=== PATIENT | male | born 1950 | race Caucasian/White ===

== ENCOUNTER 2020-05-29 07:56 | Emergency (ER) | payer OTHER ==
[~2020-05-29] VITALS: Ht 177.8 cm; Wt 96.2 kg
[~2020-05-29 07:56] MED LIST: ATORVASTATIN CA40 MG PO; CO Q-10200 MG PO; FLUOXETINE HCL20 MG PO; GABAPENTIN100 MG PO; GLUCOPHAGE500 MG PO; LOVASTATIN20 MG PO; MELOXICAM7.5 MG PO; NAPROXEN375 MG PO; NORCO 10-325 T1 EACH PO; OMEPRAZOLE20 MG PO; PERCOCET 5-3251 EACH PO; VITAMIN B-12100 MCG PO; VITAMIN D-32000 UNIT PO; ZOFRAN4 MG PO; ZYRTEC10 MG PO
[2020-05-29] MEDS ORDERED: PLAVIX75 MG PO (14:43)
--- NOTE | 2020-05-29 17:18 | EKG ---
[facility] [address] [facility] [place], [place] [address] Signed Normal sinus rhythm Normal ECG No previous ECGs available Confirmed by MILKA YOUNG MD ([id number]) on 05/29/2020 5:18:39 PM Electronically Signed By: MILKA YOUNG MD 05/29/20 1718 PATIENT NAME: DONNELL CHAUN Electrocardiogram DATE OF : 50 PHYSICIAN: MILKA YOUNG MD REPORT #: [id number] REPORT IS CONFIDENTIAL AND NOT TO BE RELEASED WITHOUT AUTHORIZATION
== END 2020-05-29 15:11 | disposition home or self-care (01) ==
LOC: ED 07:56
DX: I63.81 Other cerebral infarction due to occlusion or stenosis of small artery (principal); M54.12 Radiculopathy, cervical region; E11.9 Type 2 diabetes mellitus without complications; F17.200 Nicotine dependence, unspecified, uncomplicated; Z79.899 Other long term (current) drug therapy; Z79.84 Long term (current) use of oral hypoglycemic drugs
CPT/HCPCS: 70450; 70496; 70498; 70551; 71045; 80053; 84484; 85025; 85610; 85730; 93005; 93010; 99284-25; Q9967

== ENCOUNTER 2023-01-14 09:24 | Emergency (ER) | payer MEDICARE ==
[~2023-01-14] VITALS: Ht 177.8 cm; Wt 80.0 kg
[~2023-01-14 09:24] MED LIST changes: +AMLODIPINE BESYL5 MG PO; +CLOPIDOGREL75 MG PO; +GABAPENTIN300 MG PO; +LISINOPRIL5 MG PO; +LO-DOSE ASPIRIN81 M1 PO; +METFORMIN HCL500 MG PO; +NICOTINE LOZENGE4 MG BUCCAL; +OXYCODONE HCL5 MG PO; +PLAVIX75 MG PO
[2023-01-14] MEDS ORDERED: BENZONATATE100 MG PO (09:55)
[2023-01-14] MEDS ORDERED: AMOX TR-K CLV1 EAC1 PO (09:55)
[2023-01-14] MEDS ORDERED: LOSARTAN-HCTZ1 EAC1 PO (09:55)
[2023-01-14] MEDS ORDERED: GUAIFENESIN-CO473 ML PO (09:55)
[2023-01-14] MEDS ORDERED: VENTOLIN HFA18 GM INH ×2 (09:55→10:06)
[2023-01-14] MEDS ORDERED: SILDENAFIL CIT100 MG PO (09:55)
[2023-01-14] MEDS ORDERED: TAMSULOSIN HCL0.4 MG PO (09:55)
[2023-01-14] MEDS ORDERED: DEXAMETHASONE6 MG PO (10:06)
[2023-01-14 11:44] VITALS: BP 117/73
== END 2023-01-14 11:45 | disposition home or self-care (01) ==
LOC: ED 09:24
DX: U07.1 COVID-19 (principal); J45.909 Unspecified asthma, uncomplicated; I10 Essential (primary) hypertension; E11.9 Type 2 diabetes mellitus without complications; F17.200 Nicotine dependence, unspecified, uncomplicated; Z79.84 Long term (current) use of oral hypoglycemic drugs; Z79.899 Other long term (current) drug therapy; Z79.82 Long term (current) use of aspirin
CPT/HCPCS: 71046; 94640; 99285-25; J8540

== ENCOUNTER 2024-05-07 06:31 | Day surgery (SDC) | payer MEDICARE, OTHER ==
[~2024-05-07] VITALS: Ht 175.3 cm; Wt 84.4 kg
[~2024-05-07 06:31] MED LIST changes: +AMOX TR-K CLV1 EAC1 PO; +BENZONATATE100 MG PO; +CLOBETASOL 0.0560 GM TOP; +DEXAMETHASONE6 MG PO; +GUAIFENESIN-CO473 ML PO; +LOSARTAN-HCTZ1 EAC1 PO; +MIDAZOLAM HCL 5 MG/5 ML VIAL IV PRN; +NEURONTIN300 MG PO; +SILDENAFIL CIT100 MG PO; +TAMSULOSIN HCL0.4 MG PO; +VENTOLIN HFA18 GM INH; +fentaNYL citrate 100 MCG/2 ML VIAL IV PRN
[2024-05-07] MEDS ORDERED: MIDAZOLAM HCL 5 MG/5 ML VIAL ONE (06:40)
[2024-05-07] MEDS ORDERED: fentaNYL citrate 100 MCG/2 ML VIAL ONE (06:40)
[2024-05-07 06:50] VITALS: BP 133/62
[2024-05-07] MEDS ORDERED: LACTATED RINGER'S 1,000 ML IV SCH (07:00)
[2024-05-07] MEDS ORDERED: IBLOOD GLUCOSE TEST STRIP 1 EA TEST VI PRN (07:00)
[2024-05-07] MEDS ORDERED: LIDOCAINE HCL 1% 5 ML SDV INJ ONE (07:00)
--- NOTE | 2024-05-07 07:21 | NUR ---
PT NOT AVAILABLE FOR VISIT. PROVIDED PRAYER.
[2024-05-07 08:46] VITALS: BP 106/68
--- NOTE | 2024-05-07 08:59 | NUR ---
05/07/24 0859 Marcelina Landon 0812- PT ARRIVES TO THE PACU WITH A NATURAL AIRWAY ON 3L OF O2 VIA NC. PT IS MOVING HIS ARMS AND TALKING WITH RN. LR INFUSING IN HIS R AC. ALL MONITORS PUT IN PLACE. VSS. PT DENIES PAIN AND NAUSEA. PT ENCOURAGED TO PASS GAS. ABDOMEN SOFT AND NONDISTENDED. PT ORIENTED TO PACU. 0822- O2 TURNED OFF AND REMOVED. PT IS ABLE TO MAINTAIN O2 SATS ABOVE 95%. 0828- PT PASSING GAS OFF AND ON. PT DENIES PAIN AND NAUSEA AND TAKING TALKING WITH RN. 0842- PT HOB INCREASED AND PT TOLERATING WELL. PT DRINKING JUICE. DC INSTRUCTIONS GONE OVER. NO QUESTIONS OR CONCERNS. PT DENIES DIZZINESS WHEN SITTING UP. 0850- ALL MONITORS REMOVED. PT GETTING DRESSED INDEPENDENTLY WITH NO ISSUES.
--- NOTE | 2024-05-07 09:04 | OR ---
[facility] [address] [place], [place] [address] Signed DATE OF OPERATION: 05/07/2024 SURGEON: Jamia Mejía MD PREOPERATIVE DIAGNOSES: 1. Personal history of colonic polyps in 2019 at age 67. 2. Diverticulosis. 3. Internal hemorrhoids. POSTOPERATIVE DIAGNOSES: 1. 4 mm polyps x2 at 5 cm in rectum. 2. 5 mm polyp at distal right colon. 3. 5 mm polyps x2 at 20 cm in distal sigmoid colon/rectosigmoid junction. 4. Minimal left-sided diverticulosis. 5. Tortuous sigmoid colon. 6. Minimal internal hemorrhoids. PROCEDURE: Colonoscopy with hot biopsy. ESTIMATED BLOOD LOSS: None. INDICATIONS: Rachid is a 73-year-old gentleman, asked to see me for followup colonoscopy. He had a colonoscopy in his late 50s with Dr. Martin which was negative. I helped him again in 2019 at the age of 67. He had several small adenomatous polyps removed. They were all under 5 mm in diameter. He had little diverticulosis along with internal hemorrhoids. He had an upper endoscopy at that same time. We used a total of 10 mg of Versed and 175 mcg of fentanyl. He has no family history of colon cancer or polyps. He has no lower GI complaints. Despite his COPD and his mild stroke he continues to work. He said he is and the COVID pandemic really cut into his finances. In the office, I gave him our brochure on colonoscopy. We reviewed the nature of the test. There is risk including, but not limited to gas bloating, crampy abdominal pain, bleeding, perforation requiring surgery, and missed diagnosis. We also reviewed the written instructions for the bowel prep line by line. It is the same bowel prep he took before. He was supposed to hold the aspirin for three days, but he only held it for two. He did hold the metformin this morning. We also reviewed the need for IV conscious sedation. He felt like Versed and fentanyl would be sufficient as it was before. He had expressed understanding and wished to proceed. Electronically Signed By: JAMIA MEJÍA MD 05/07/24 0904 PATIENT NAME: RACHID CHAU OPERATIVE REPORT DATE OF : 50 REPORT #: [id number] PHYSICIAN: JAMIA MEJÍA MD PCP: RACHID HOUSTON MD REPORT IS CONFIDENTIAL AND NOT TO BE RELEASED WITHOUT AUTHORIZATION [facility] [address] [place], [place] [address] Signed DESCRIPTION OF PROCEDURE: Rachid was taken into our endoscopy suite and placed in the left lateral decubitus position. He was given a total of 8 mg of Versed and 150 mcg of fentanyl to cover the case. A digital rectal exam was performed. This was unremarkable. No external hemorrhoids. Good sphincter tone. No masses. The adult colonoscope was introduced and advanced under direct visualization of camera. He does have a tortuous sigmoid colon. It actually took us a while to get through that on this occasion. We had to give increasing doses of the Versed and fentanyl. We had to use some abdominal compression. The scope continued to drag in his tortuous sigmoid colon. We eventually made it over hepatic flexure. It took a while. We finally made it down into the cecum itself. He had just a little bit of bilious fluid in the cecum. We were able to irrigate and suction that out completely. The scope was then slowly withdrawn. The above-mentioned polyps were easily removed with the help of hot biopsy forceps. He does have diverticula in the left and sigmoid colon. They were small to moderate size, few in number and scattered about. The scope was retroflexed in the rectum. We could see his minimal internal hemorrhoids. After this, the gas was suctioned out, colonoscope removed. Overall, Rachid tolerated the procedure well. RECOMMENDATIONS: I will see Rachid back in my office in 7 to 14 days to review his results. He will be on the five year plan for sure. He might consider monitored anesthesia care as he is getting older. It was a bit difficult to get through his tortuous sigmoid colon. Jamia Mejía MD ALB/MODL /[id number] cc: MD Rachid Burgess MD Patient Chart Electronically Signed By: JAMIA MEJÍA MD 05/07/24 0904 PATIENT NAME: RACHID CHAU OPERATIVE REPORT DATE OF : 50 REPORT #: [id number] PHYSICIAN: JAMIA MEJÍA MD PCP: RACHID HOUSTON MD REPORT IS CONFIDENTIAL AND NOT TO BE RELEASED WITHOUT AUTHORIZATION [address] [address] Signed Copies: JAMIA MEJÍA MD, ROBERT D DMD ~ Electronically Signed By: JAMIA MEJÍA MD 05/07/24 0904 PATIENT NAME: CHAURACHID OPERATIVE REPORT DATE OF : 50 REPORT #: [id number] PHYSICIAN: JAMIA MEJÍA MD PCP: RACHID HOUSTON MD REPORT IS CONFIDENTIAL AND NOT TO BE RELEASED WITHOUT AUTHORIZATION
--- NOTE | 2024-05-09 08:06 | PATH ---
[facility] [address] [facility] [address] [facility] [place] [address] Signed SPECIMEN(S): A RECTAL POLYP AT 5 CM SPECIMEN(S): B DISTAL ASCENDING COLON POLYP SPECIMEN(S): C DISTAL SIGMOID POLYP AT 20 CM SPECIMEN SOURCE: A. RECTAL POLYP AT 5 CM B. DISTAL ASCENDING COLON POLYP C. DISTAL SIGMOID POLYP AT 20 CM CLINICAL HISTORY: H/O colon polyps, diverticulosis FINAL PATHOLOGIC DIAGNOSIS: A. Rectal polyp at 5 cm: - Polypoid fragment of benign colonic mucosa with focal features suggestive of benign inflammatory polyp. - No colitis or malignancy identified. B. Distal ascending colon polyp: - Polypoid fragment of benign colonic mucosa. - No colitis or malignancy identified. C. Distal sigmoid colon polyp at 20 cm: - Polypoid fragment of benign colonic mucosa. - No colitis or malignancy identified. [facility] MICROSCOPIC EXAMINATION: Histologic sections of all submitted blocks are examined by light microscopy. These findings, together with the gross examination, support the pathologic diagnosis. GROSS DESCRIPTION: A. The specimen, labeled and designated "Chau, rectal polyp at 5 cm," is received in formalin and consists of two xie soft tissue fragments, ranging from 0.2-0.3 cm. Entirely submitted in (A1). B. The specimen, labeled and designated "Chau, distal ascending colon polyp," is received in formalin and consists of one xie soft tissue fragment, 0.3 cm. Entirely submitted in (B1). C. The specimen, labeled and designated "Chau, distal sigmoid polyp at 20 cm," is received in formalin and consists of two xie soft tissue fragments, ranging from 0.2-0.3 cm. Entirely submitted in (C1). PATIENT NAME: DONNELL CHAU PATHOLOGY DATE OF : 50 REPORT #: [id number] PHYSICIAN: HARRIS CHANDLER PCP: DONNELL HOUSTON MD REPORT IS CONFIDENTIAL AND NOT TO BE RELEASED WITHOUT AUTHORIZATION [facility] [address] [place], [place] [address] Signed VB (under the direct supervision of a pathologist) The Gross Description was prepared using a voice recognition system. The report was reviewed for accuracy; however, sound-alike word errors, addition and/or deletions may occur. If there is any question about this report, please contact Client Services. ADDITIONAL NOTES: Immunohistochemical and/or in situ hybridization studies if performed in this case included appropriate positive controls that reacted as expected. This test was developed and its performance characteristics determined by [facility]. It has not been cleared or approved by the U.S. Food and Drug Administration. The FDA has determined that such clearance or approval is not necessary. This test is used for clinical purposes. It should not be regarded as investigational or for research. [facility] is certified under the Clinical Laboratory Improvement Amendments of 1988 (CLIA) as qualified to perform high complexity clinical laboratory testing. PERFORMING LABORATORY: Technical component was performed by [facility], [address] [place] [id number] (CLIA# [id number]). Professional interpretation was performed by [facility], [address] [place] [id number] (CLIA#: [id number]). Diagnostician: Moe Barton MD Pathologist Electronically Signed 05/09/2024 Copies: ~ PATIENT NAME: DONNELL CHAU PATHOLOGY DATE OF : 50 REPORT #: [id number] PHYSICIAN: HARRIS PATHOLOGY PCP: DONNELL HOUSTON MD REPORT IS CONFIDENTIAL AND NOT TO BE RELEASED WITHOUT AUTHORIZATION
== END 2024-05-07 09:00 | disposition home or self-care (01) ==
LOC: DS 06:31
PROVIDERS: ATTEND Colon & Rectal Surgery
PROC: 0DBN8ZZ Excision of Sigmoid Colon, Via Natural or Artificial Opening Endoscopic (ICD-10-PCS; 2024-05-07)
PROC: 0DBP8ZZ Excision of Rectum, Via Natural or Artificial Opening Endoscopic (ICD-10-PCS; 2024-05-07)
PROC: 0DBF8ZZ Excision of Right Large Intestine, Via Natural or Artificial Opening Endoscopic (ICD-10-PCS; principal; 2024-05-07 07:30)
DX: K63.5 Polyp of colon (principal); K62.1 Rectal polyp; K57.30 Diverticulosis of large intestine without perforation or abscess without bleeding; K63.89 Other specified diseases of intestine; K64.8 Other hemorrhoids; E11.9 Type 2 diabetes mellitus without complications; I10 Essential (primary) hypertension; F17.200 Nicotine dependence, unspecified, uncomplicated; M54.12 Radiculopathy, cervical region; Z79.84 Long term (current) use of oral hypoglycemic drugs; Z79.899 Other long term (current) drug therapy
CPT/HCPCS: 88305; 99153; G0500; J2250; J3010; J7121